=== PATIENT | female | born 1985 | race Caucasian/White ===

== ENCOUNTER 2017-09-20 08:30 | Emergency (ER) | payer OTHER ==
[2017-09-20 08:44] VITALS: BP 117/77
[2017-09-20] MEDS ORDERED: IBUPROFEN 800 MG TABLET PO STA (10:07)
--- NOTE | 2017-09-20 10:10 | ED Physician Documentation ---
PD HPI URI - Stated complaint Stated Complaint: COUGH/HEAD/BODYACHE - Chief complaint Chief Complaint: Resp - History obtained from History obtained from: Patient - History of Present Illness Timing - onset: How many days ago (2) Timing details: Still present Associated symptoms: Chills, Nasal congestion, Sore throat, Productive cough ( Minimal sputum), Chest pain (with coughing). No: Fever, Dyspnea - Additional information Additional information: The patient is a 32-year-old female who presents with cough of 2 days' duration. Last night she experienced chest pain with the cough. Her cough is minimally productive of sputum. She reports associated chills and myalgias, headache, sore throat, and congestion. She denies nausea or vomiting. She does not smoke cigarettes. She has received a flu vaccination this year. Review of Systems Constitutional: reports: Chills, Myalgias Ears: denies: Ear pain Nose: reports: Congestion Throat: reports: Sore throat Cardiac: reports: Chest pain / pressure (with coughing) Respiratory: reports: Cough. denies: Dyspnea GI: denies: Abdominal Pain, Nausea, Vomiting Skin: denies: Rash Musculoskeletal: denies: Neck pain, Extremity swelling Neurologic: reports: Headache PD PAST MEDICAL HISTORY - Past Medical History Past Medical History: No Cardiovascular: None Respiratory: None Neuro: None Endocrine/Autoimmune: None - Present Medications Home Medications: Ambulatory Orders Medication Instructions Recorded Confirmed Benzonatate [Tessalon Perle] 100 mg PO BID PRN #14 capsule 09/20/17 Ibuprofen 800 mg PO TID PRN #20 tablet 09/20/17 - Allergies Allergies/Adverse Reactions: Allergies Allergy/AdvReac Type Severity Reaction Status Date / Time No Known Drug Allergies Allergy Verified 09/20/17 08:43 - Social History Does the pt smoke?: No Smoking Status: Never smoker Results - Vitals Vitals: Oxygen O2 Source Room air PD MEDICAL DECISION MAKING - ED course Complexity details: considered differential, d/w patient ED course: The patient's presentation is most consistent with viral upper respiratory infection. Her presentation does not suggest peritonsillar abscess or pneumonia. Treatment in the emergency department included administration of ibuprofen 800 mg orally. She is being discharged with prescriptions for Tessalon Perles and ibuprofen. I discussed with her the expected course of illness, symptomatic treatment and outpatient follow-up, as well as potentially worrisome signs or symptoms that should prompt reevaluation in the emergency department. Departure - Departure Disposition: 01 Home, Self Care Clinical Impression: Upper respiratory tract infection Qualifiers: URI type: unspecified viral URI Qualified Code(s): J06.9 - Acute upper respiratory infection, unspecified Condition: Stable Instructions: ED URI Viral Follow-Up: [facility] [Provider Group] Prescriptions: Benzonatate [Tessalon Perle] 100 mg PO BID PRN #14 capsule PRN Reason: Cough Ibuprofen 800 mg PO TID PRN #20 tablet PRN Reason: Pain Comments: You can use ibuprofen, up to 3 times daily if needed for fever or achiness. You can use Tessalon as prescribed if needed for cough. Follow up with your primary physician within 2 weeks. Call to schedule appointment. Return to the emergency department if you develop increasing difficulty breathing, or otherwise worsening symptoms. Discharge Date/Time: 09/20/17 10:13
== END 2017-09-20 10:13 | disposition home or self-care (01) ==
LOC: ED 08:30
DX: J06.9 Acute upper respiratory infection, unspecified (principal); B97.89 Other viral agents as the cause of diseases classified elsewhere
CPT/HCPCS: 99283; A9270

== ENCOUNTER 2020-01-18 06:55 | Emergency (ER) | payer OTHER ==
[2020-01-18] MEDS ORDERED: diphenhydrAMINE INJ 50 MG/ML VIAL IM STA (07:17)
[2020-01-18] MEDS ORDERED: EPINEPHrine 1 MG/ML AMP IM STA (07:17)
[2020-01-18] MEDS ORDERED: CETIRIZINE 10 MG TABLET PO STA (07:17)
[2020-01-18] MEDS ORDERED: CHERRY SYRUP 10 ML UDC PO ONE (07:17)
[2020-01-18] MEDS ORDERED: FAMOTIDINE 20 MG TABLET PO STA (07:17)
[2020-01-18] MEDS ORDERED: DEXAMETHASONE 10 MG/ML VIAL PO STA (07:17)
--- NOTE | 2020-01-18 07:18 | ED Physician Documentation ---
PD HPI SKIN - Stated complaint Stated Complaint: ALLERGIC REACTION - Chief complaint Chief Complaint: Allergic Rx - History obtained from History obtained from: Patient - History of Present Illness Timing - onset: How many days ago (2) Timing - duration: Days (2) Timing - details: Gradual onset, Still present (increasing each day. Had gotten small itchy bumps after taking dog for walk in [employer], and thought mosquito bites. Developed more general hives yesterday, and today worse with swelling of lips and around eyes too. No intraoral swelling nor dyspnea.) Location: [place] Quality / character: Itchy, Swelling Improved by: Benadryl (somewhat better with Benadryl last night, but still poor sleep due to itching.) Associated symptoms: No: Fever, Joint pain, N/V/D Contributing factors: Exposed to medication (is on Cipro antibiotic for past 2 1/2 weeks s/p breast augmentation surgery, as prophylaxis for infection. States wounds are healed well.), Insect bite /sting (had some mosquito bites 3 days ago and thought that might be start of it.) Similar symptoms before: Has not had sx before Recently seen: Surgery (2 1/2 weeks ago) Review of Systems Constitutional: denies: Fever, Chills, Myalgias Throat: denies: Oral lesions / sores, Sore throat Respiratory: denies: Dyspnea, Wheezing GI: denies: Nausea, Vomiting, Diarrhea Skin: reports: Rash PD PAST MEDICAL HISTORY - Past Medical History Cardiovascular: None Respiratory: None Endocrine/Autoimmune: None - Past Surgical History Past Surgical History: No - Present Medications Home Medications: Ambulatory Orders Medication Instructions Recorded Confirmed Cetirizine [ZyrTEC] 10 mg PO BID #20 tablet 01/18/20 Ciprofloxacin HCl [Cipro] 01/18/20 Famotidine 20 mg PO DAILY #10 tablet 01/18/20 dexAMETHasone [Decadron] 4 mg PO DAILY #5 tablet 01/18/20 - Allergies Allergies/Adverse Reactions: Allergies Allergy/AdvReac Type Severity Reaction Status Date / Time No Known Drug Allergies Allergy Verified 01/18/20 07:02 - Social History Does the pt smoke?: No Smoking Status: Never smoker Does the pt drink ETOH?: No Does the pt have substance abuse?: No - Immunizations Immunizations are current?: Yes - POLST Patient has POLST: No PD ED PE NORMAL - Vitals Vital signs reviewed: Yes - General General: Alert and oriented X 3, No acute distress, Well developed/nourished - HEENT HEENT: Other (mild swelling of lips. Normal voice and respirations. No swelling of uvula nor pharynx. ) - Neck Neck: Supple, no meningeal sign, No adenopathy - Cardiac Cardiac: RRR (mild tachycardia), No murmur - Respiratory Respiratory: Clear bilaterally - Derm Derm: Normal color, Warm and dry, Other (Diffuse flat nonvesicular variable sized areas of redness and induration consistent with hives) Results - Vitals Vitals: Vital Signs - 24 hr 01/18/20 01/18/20 06:58 07:30 Temperature 36.8 C Heart Rate 112 H 87 Respiratory 16 19 Rate Blood Pressure 117/78 103/77 O2 Saturation 100 100 Oxygen O2 Source Room air PD MEDICAL DECISION MAKING - ED course Complexity details: re-evaluated patient (She was quite uncomfortable from the itching and had just a little bit of swelling of her lips and around her eyes. No anaphylaxis or notable angioedema per se but with discussion with her I did offer epinephrine as well as antihistamines and steroids to provide a little more prompt decrease in symptoms. She is given a little smaller dose of the epi. This did provide improvement in her hives and itching. As she was not really an anaphylaxis or angioedema per se, I did not feel it needed to watch her ex deadly after the epi. She was doing fine at about an hour after without any problems and was discharged.), considered differential (I would think most likely allergic reaction to the Cipro. She had had some mosquito bites from 3 days ago and that may have augmented the allergy response. However she is having increasing symptoms despite no further bug bites and so I think it more likely the Cipro. She is not having any wound infection so discontinuing it at this point should be reasonable. We will treat with antihistamines and steroids.), d/w patient Departure - Departure Disposition: 01 Home, Self Care Clinical Impression: Acute allergic reaction Qualifiers: Encounter type: initial encounter Qualified Code(s): T78.40XA - Allergy, unspecified, initial encounter Condition: Stable Record reviewed to determine appropriate education?: Yes Instructions: ED Allergic Reaction General Other Follow-Up: [facility] [Provider Group] Prescriptions: Cetirizine [ZyrTEC] 10 mg PO BID #20 tablet dexAMETHasone [Decadron] 4 mg PO DAILY #5 tablet Famotidine 20 mg PO DAILY #10 tablet Comments: I would stop the ciprofloxacin as this has a good chance of being contributing to the allergic reaction. Use long-acting antihistamines of cetirizine twice daily and famotidine daily for the next of 7 to 10 days. Use Benadryl short acting antihistamine 1 to 2 tablets every 6 hours as needed for itching acutely. Decadron steroid for the next 5 more days. This should taper down and improve over the next 1 to 2 days and resolve within 2 to 3 days. If the antibiotic is causing the reaction, it will take that long for it to drift out of your system and stop stimulating the reaction. The medications will decrease the allergy response in the meanwhile.
[2020-01-18 08:34] VITALS: BP 110/77
== END 2020-01-18 08:41 | disposition home or self-care (01) ==
LOC: ED 06:55
DX: T78.40XA Allergy, unspecified, initial encounter (principal); L50.9 Urticaria, unspecified; R22.0 Localized swelling, mass and lump, head; X58.XXXA Exposure to other specified factors, initial encounter
CPT/HCPCS: 96372; 99283; 99284; A9270; J1200